=== PATIENT | male | born 1965 | race Caucasian/White ===

== ENCOUNTER 2023-03-29 22:22 | Emergency (ER) | payer OTHER, SELFPAY ==
[2023-03-29 22:24] VITALS: BP 156/93; PULSE 64; RESP 22; TEMP 35.7; O2SAT 99
[2023-03-29 22:35] VITALS: BMI 30.3
--- NOTE | 2023-03-29 23:40 | EKG12_ITS ---
Test Reason : ILLNESS Blood Pressure : / mmHG Vent. Rate : 060 BPM Atrial Rate : 060 BPM P-R Int : 202 ms QRS Dur : 116 ms QT Int : 448 ms P-R-T Axes : 059 000 037 degrees QTc Int : 448 ms Normal sinus rhythm Normal ECG Confirmed by EVENS GONZÁLES ([id number]), restaurant expeditor PATRICA LOMBARDI ([id number]) on 04/07/2023 1:57:34 PM Referred By: Confirmed By:EVENS GONZÁLES
[2023-03-29] MEDS: Mag Hydrox/Al Hydrox/Simeth 30 ML UDC PO (23:54)
[2023-03-30 00:09] LABS: AST(SGOT) 97 U/L (15-37); Alanine Aminotransfer ALT/SGPT 95 U/L (16-61); Albumin, Serum 3.3 g/dL (3.2-5.0); Alkaline Phosphatase 66 U/L (45-117); Anion Gap 3 (5-15); BUN 16 mg/dL (7-18); BUN/Creat Ratio 16.6 RATIO (10-20); Bilirubin, Direct 0.28 mg/dL (0.00-0.30); Calcium,Total 8.9 mg/dL (8.5-10.1); Chloride 108 mmol/L (98-107); Creatinine, Serum 0.96 mg/dL (0.70-1.30); EST Glomerular Filtration Rate 85 mL/min (>60); Est Glom Filt Rate - Afr Amer 103 mL/min (>60); Estimated Creatinine Clearance 79.17 ml/min; Globulin 3.4 g/dL (2.2-4.2); Glucose 104 mg/dL (74-106); Lipase 55 U/L (13-75); Protein, Total 6.7 g/dL (6.4-8.2); Sodium Level 139 mmol/L (136-145)
[2023-03-30 00:19] LABS: Absolute Lymphocyte Count 0.98 X10^3/uL (0.83-4.51); Basophil# 0.06 X10^3/uL; Basophil% 0.5 % (0-1); Eosinophil# 0.17 X10^3/uL; Eosinophils% 1.5 % (0-5); Hematocrit 43.7 % (40-54); Hemoglobin 14.6 g/dL (13.0-16.5); Lymphocyte # 0.98 X10^3/ul (0.83-4.51); Lymphocyte % 8.9 % (19-41); Mean Corp Hgb Conc 33.4 g/dL (32-36); Mean Corpuscular Hgb 31.9 pg (27.0-32.0); Mean Corpuscular Volume 95.4 fL (80-94); Mean Platelet Vol. 10.6 fl (6.2-12.0); Monocyte# 0.73 X10^3/uL; Monocyte% 6.7 % (0-10); NRBC Flagged by Analyzer 0 % (0-5); Neutrophil # 8.98 X10^3/uL (2.7-7.7); Neutrophil % 81.9 % (47-70); Platelet Count 226 K/mm3 (150-450); RBC Distribution Width CV 13.1 % (11.6-14.6); RBC Distribution Width SD 46.3 fl (35.1-43.9); Red Blood Count 4.58 M/mm3 (4.6-6.2)
--- NOTE | 2023-03-30 01:05 | EDS_ITS ---
HPI History of Present Illness Chief Complaint: Abd Pain Informant: patient and spouse/S.O. Narrative Narrative: Patient is a 58-year-old male with past medical history of depression as well as gastritis. He is on Prilosec secondary to this. He states his physician recommended he cut back on his Prilosec since he has been on it for so long and therefore the patient has not been taking it regularly for multiple weeks. He states that today he ate a large amount of food that was more acidic in nature and then this evening developed some midepigastric abdominal discomfort which was not resolving with home medication and secondary to this he was brought in f or evaluation. He does state that as time is past he has had mild to moderate improvement of his symptoms now that he is arrived to the ER [facility] Medical History (Updated 03/30/23 @ 05:[address] Moody Clark, DO) Depression Home Medications fluoxetine 20 mg capsule (Prozac) 20 mg PO DAILY 03/29/23 [History Last Taken Unknown] famotidine 20 mg tablet (Pepcid) 20 mg PO BID 30 days #60 tabs 03/30/23 [Rx Last Taken Unknown] Allergy/AdvReac Type Severity Reaction Status Date / Time Penicillins AdvReac Bleeding Verified 03/29/23 22:24 Surgical History no surgical history Social History Smoking Status: Never smoker [facility] ED Constitutional Constitutional ED: Denies chills or fever(s) ENT ENT ED: Denies sore throat Cardiovascular Cardiovascular: Denies chest pain, palpitations or racing heartbeat Respiratory/Chest Respiratory/Chest: Denies cough or dyspnea Gastrointestinal Gastrointestinal: Reports abdominal pain and nausea; Denies diarrhea or vomiting Genitourinary Genitourinary ED: Denies dysuria Musculoskeletal Musculoskeletal: Denies myalgias Integumentary Denies rash Neurologic Neurologic: Denies headache(s) Psychiatric Psychiatric: Reports depression Hematologic/Lymphatic Hematologic/Lymphatic: Denies easy bleeding or easy bruising EXAM Physical Exam Const Vital Signs: 03/29/23 22:24 Temperature 96.2 F L Temperature Source Temporal Pulse Rate 64 Respiratory Rate 22 H Blood Pressure 156/93 H Blood Pressure Mean 114 Pulse Ox 99 Oxygen Delivery Method Room Air Positive well nourished and well developed General Appearance ED: well developed HEENT Reports moist mucous membranes Eyes PERRL and EOMs intact bilaterally General Eye ED: Negative for scleral icterus Neck supple Chest Wall palpation of chest normal Resp normal respiratory effort and clear to auscultation bilaterally Cardio regular rate and regular rhythm Rate: other Other Details: Radial and carotid pulses are equal and symmetric GI non-distended GI Narrative: Abdomen is soft and nondistended with normal active bowel sounds the patient has mild pain on palpation in the midepigastric region without voluntary guarding or rigidity no pulsatile mass or fluid wave. No hernia noted Auscultation: normoactive bowel sounds Palpation: soft Extremity normal to inspection Neuro oriented x3 and CN's II-XII intact bilaterally Sensorium / Orientation: alert Motor Exam: strength 5/5 throughout Psych mental status grossly normal Skin no rashes or lesions noted General Skin Exam: Negative for jaundice MDM MDM MDM Narrative Medical decision making narrative: Patient presented to the ER mildly hypertensive otherwise with stable vitals. His abdomen was soft and nonsurgical and therefore I felt no need for emergent imaging studies. With pain in the upper abdomen differential diagnosis is for acute coronary syndrome versus pancreatitis versus biliary colic versus gastroenteritis versus gastritis. Basic blood work was obtained which revealed no clinically significant findings such as acute kidney injury or elevation to his lipase to suggest pancreatitis. An EKG was obtained as the upper abdominal pain can potentially be acute coronary syndrome and this revealed normal sinus rhythm without ischemic changes. Patient was given a GI cocktail as he has a history of gastritis and has not been taking his Prilosec regularly and this did help completely resolve the patient's pain. Therefore at this time as work-up reveals no clinically significant findings the patient's pain has completely resolved with a GI cocktail and his exam history and work-up indicate this is most likely gastritis in nature he will be given symptomatic medications and discharged home History & Record Review Discussion w/independent historian: Patient and Significant other Lab Data Attestation: I reviewed the patient's lab results. Labs: Laboratory Results - last 24 hr 03/29/23 23:45 WBC 11.0 RBC 4.58 L Hgb 14.6 Hct 43.7 MCV 95.4 H MCH 31.9 MCHC 33.4 RDW Std Deviation 46.3 H RDW Coeff of Bre 13.1 Plt Count 226 MPV 10.6 Immature Gran % (Auto) 0.500 Neut % (Auto) 81.9 H Lymph % (Auto) 8.9 L [place] % (Auto) 6.7 Eos % (Auto) 1.5 Baso % (Auto) 0.5 Absolute Neuts (auto) 9.0 H Absolute Lymphs (auto) 0.98 Nucleated RBC % 0 Sodium 139 Potassium 4.0 Chloride 108 H Carbon Dioxide 28.0 Anion Gap 3 L BUN 16 Creatinine 0.96 Estim Creat Clear Calc 79.17 Est GFR (MDRD) Af Amer 103 Est GFR (MDRD) Non-Af 85 BUN/Creatinine Ratio 16.6 Glucose 104 Calcium 8.9 Total Bilirubin 0.50 Direct Bilirubin 0.28 AST 97 H ALT 95 H Alkaline Phosphatase 66 Total Protein 6.7 Albumin 3.3 Globulin 3.4 Lipase 55 Discharge Plan Triage Chief Complaint: Abd Pain ED Provider: Moody Clark Dx/Rx/DC Orders Clinical Impression: Gastritis, History of depression Prescriptions: New famotidine [Pepcid] 20 mg tablet 20 mg PO BID 30 Days Qty: 60 2RF No Action fluoxetine [Prozac] 20 mg capsule 20 mg PO DAILY Primary Care Provider: Marcial Oh Referrals: Marcial Oh MD [Primary Care Provider] - Activity Restrictions/Additional Instructions: Your work-up today indicates that your abdominal pain was secondary to inflammation within the stomach which is gastritis. Continue to back off your Prilosec as directed by your family doctor but you may begin taking Pepcid twice a day as prescribed to help control any further bouts of abdominal discomfort/gastritis. If you have any further concerns or worsening of symptoms please return for repeat evaluation Disposition Disposition: Home, Self Care Discharge Date/Time: 03/30/23 01:33
== END 2023-03-30 01:33 | disposition home or self-care (01) ==
PROVIDERS: Emergency Provider Emergency Medicine; PCP Family Medicine; Visit Provider Emergency Medicine
DX: K29.70 Gastritis, unspecified, without bleeding (principal); F32.A Depression, unspecified; Z79.899 Other long term (current) drug therapy
CPT/HCPCS: 80048; 80076; 83690; 85025; 93005; 99283; A4216